=== PATIENT | male | born 1945 | race Caucasian/White ===

== ENCOUNTER 2018-06-03 21:20 | Observation (INO) ==
[2018-06-04 00:02] LABS: Baso % (Auto) 0.3 % (0.0-2.0); Eos % (Auto) 0.1 % (0.0-4.0); Hematocrit 44.3 % (39.0-51.0); Hemoglobin 14.8 gm/dL (13.0-17.0); Lymph # (Auto) 0.8 th/mm3 (1.0-4.8); Lymph % (Auto) 8.9 % (9.0-44.0); Mean Corpuscular HGB Conc 33.5 % (32.0-36.0); Mean Corpuscular Volume 83.7 fL (80.0-100.0); Mean Platelet Volume 8.8 fL (7.0-11.0); Mono # (Auto) 0.6 th/mm3 (0.0-0.9); Neut % (Auto) 84.7 % (16.0-70.0); Platelet Count 167 th/mm3 (150-450); Red Cell Distribution Width 16.3 % (11.6-17.2); White Blood Count 9.4 th/mm3 (4.0-11.0)
--- NOTE | 2018-06-04 00:10 | ED ---
HPI General Chief complaint: Urogenital-Male Stated complaint: can't pee/very uncomfortable Time Seen by Provider: 06/03/18 23:29 Source: patient Mode of arrival: ambulatory Limitations: no limitations History of Present Illness HPI narrative: 73yo M with PMH of enlarged prostate presents to the ED with c/o inability to urinate since 5pm tonight. Said he has also been having diarrhea for 1 day. He saw blood on toilet paper. Pt was seen at [facility] 05/07/18 and was placed cipro for orchitis. Pt said his testicle is no longer swollen and denies any testicular pain. Denies any fever, chest pain, sob, n/v. Pt has suprapubic distension and pain. Related Data Home Medications Medication Instructions Recorded Confirmed No Known Home Medications 06/04/18 06/04/18 Previous Rx's Medication Instructions Recorded [id number] 1 applicatio TOPICAL BID #1 tube 06/05/18 [Triple Antibiotic] tamsulosin 0.4 mg PO DAILY #30 cap 06/05/18 Allergies Allergy/AdvReac Type Severity Reaction Status Date / Time No Known Allergies Allergy Unverified 06/03/18 23:09 Review of Systems ROS Unobtainable All other systems reviewed negative except as stated in HPI [facility] Medical History Medical History Ankle fracture, left (Acute) Patient denies medical problems (Acute) Surgical History Surgical History H/O hernia repair (Acute) S/P LASIK (laser assisted in situ keratomileusis) of both eyes (Acute) Family History Family History Father Family history of cancer Social History Social History Substance History: No History of Abuse Second Hand Smoke Exposure: No Smoking Status: Former smoker Tobacco Type: Cigarettes Packs Per Day: 1 Cigarettes Per Day: 20.0 Years Smoked: 30 Pack-Years: 30.00 years: 30 How Often Do You Have a Drink Containing Alcohol: Never (Not in the last year, Previous binged drinker on the weekends x 30 years) Recent Travel in [facility] within the Last 8 Weeks: No Recent Out of Country Travel within the Last 8 Weeks: No Exam Narrative Exam Narrative: GENERAL: 73yo M in mild distress. SKIN: Focused skin assessment warm/dry. HEAD: Atraumatic. Normocephalic. EYES: Pupils equal and round. No scleral icterus. No injection or drainage. ENT: No nasal bleeding or discharge. Mucous membranes pink and moist. NECK: Trachea midline. No JVD. CARDIOVASCULAR: Regular rate and rhythm. No murmur appreciated. RESPIRATORY: No accessory muscle use. Clear to auscultation. Breath sounds equal bilaterally. GASTROINTESTINAL: Abdomen soft, +TTP suprapubic region with suprapubic distension. No rebound tenderness or guarding. RECTAL: Brown stool, positive hemaprompt. MUSCULOSKELETAL: No obvious deformities. No clubbing. No cyanosis. No edema. NEUROLOGICAL: Awake and alert. No obvious cranial nerve deficits. Motor grossly within normal limits. Normal speech. PSYCHIATRIC: Appropriate mood and affect; insight and judgment normal. Course Initial Documented Vital Signs Temperature 98.2 F 06/03/18 23:09 Pulse Rate 113 H 06/03/18 23:09 Respiratory Rate 16 06/03/18 23:09 Blood Pressure 118/78 06/03/18 23:09 Pulse Oximetry 95 06/03/18 23:09 Last Documented Vital Signs Temperature 97.6 F 06/05/18 13:57 Pulse Rate 63 06/05/18 13:57 Respiratory Rate 20 06/05/18 13:57 Blood Pressure 137/60 06/05/18 13:57 Pulse Oximetry 93 L 06/05/18 13:57 Medical Decision Making MDM Narrative Medical decision making narrative: Bladder US showed 643cc of urine. Discussed with Dr. Gandhi and he said to keep pt NPO and he will bring him to the OR in the morning. Differential Diagnosis Differential Diagnosis: Urinary retention vs. colitis vs. lower GI bleed vs. anal fissure Lab Data Result diagrams: 06/05/18 04:25 06/05/18 04:25 Lab Results 06/03/18 06/03/18 06/03/18 Range/Units 23:40 23:40 23:40 WBC 9.4 (4.0-11.0) th/mm3 RBC 5.30 (4.50-5.90) mil/mm3 Hgb 14.8 (13.0-17.0) gm/dL Hct 44.3 (39.0-51.0) % MCV 83.7 (80.0-100.0) fL MCH 28.0 (27.0-34.0) pg MCHC 33.5 (32.0-36.0) % RDW 16.3 (11.6-17.2) % Plt Count 167 (150-450) th/mm3 MPV 8.8 (7.0-11.0) fL Neut % (Auto) 84.7 H (16.0-70.0) % Lymph % (Auto) 8.9 L (9.0-44.0) % [place] % (Auto) 6.0 (0.0-8.0) % Eos % (Auto) 0.1 (0.0-4.0) % Baso % (Auto) 0.3 (0.0-2.0) % Neut # (Auto) 8.0 H (1.8-7.7) th/mm3 Lymph # (Auto) 0.8 L (1.0-4.8) th/mm3 [place] # (Auto) 0.6 (0.0-0.9) th/mm3 Eos # (Auto) 0.0 (0.0-0.4) th/mm3 Baso # (Auto) 0.0 (0.0-0.2) th/mm3 WBC Differential . Differential Comment Auto diff final PT 10.3 (9.8-11.6) sec INR 1.0 Ratio APTT 24.9 (24.3-30.1) sec Sodium 141 (136-145) meq/L Potassium 3.4 L (3.5-5.1) meq/L Chloride 106 (98-107) meq/L Carbon Dioxide 24.5 (21.0-32.0) meq/L Anion Gap 11 (5-15) meq/L BUN 9 (7-18) mg/dL Creatinine 0.83 (0.60-1.30) mg/dL Estimated GFR Greater than 89 (>89) mL/min Random Glucose 122 H (74-106) mg/dL Calcium 9.3 (8.5-10.1) mg/dL Blood Type Blood Type Recheck Antibody Screen 06/03/18 06/05/18 06/05/18 Range/Units 23:40 04:25 04:25 WBC 5.3 (4.0-11.0) th/mm3 RBC 4.45 L (4.50-5.90) mil/mm3 Hgb 12.5 L D (13.0-17.0) gm/dL Hct 37.6 L (39.0-51.0) % MCV 84.4 (80.0-100.0) fL MCH 28.0 (27.0-34.0) pg MCHC 33.2 (32.0-36.0) % RDW 16.7 (11.6-17.2) % Plt Count 139 L (150-450) th/mm3 MPV 8.9 (7.0-11.0) fL Neut % (Auto) 85.7 H (16.0-70.0) % Lymph % (Auto) 10.2 (9.0-44.0) % [place] % (Auto) 4.1 (0.0-8.0) % Eos % (Auto) 0.0 (0.0-4.0) % Baso % (Auto) 0.0 (0.0-2.0) % Neut # (Auto) 4.5 (1.8-7.7) th/mm3 Lymph # (Auto) 0.5 L (1.0-4.8) th/mm3 [place] # (Auto) 0.2 (0.0-0.9) th/mm3 Eos # (Auto) 0.0 (0.0-0.4) th/mm3 Baso # (Auto) 0.0 (0.0-0.2) th/mm3 WBC Differential . Differential Comment Auto diff final PT (9.8-11.6) sec INR Ratio APTT (24.3-30.1) sec Sodium 146 H (136-145) meq/L Potassium 4.2 D (3.5-5.1) meq/L Chloride 112 H (98-107) meq/L Carbon Dioxide 24.4 (21.0-32.0) meq/L Anion Gap 10 (5-15) meq/L BUN 14 (7-18) mg/dL Creatinine 0.96 (0.60-1.30) mg/dL Estimated GFR 77 L (>89) mL/min Random Glucose 112 H (74-106) mg/dL Calcium 8.5 D (8.5-10.1) mg/dL Blood Type A Positive Blood Type Recheck Required Antibody Screen Negative Imaging Data Radiologist's impression: ITS Impressions Abdomen/Pelvis CT 06/04/18 01:53 CONCLUSION: 1. Mild bilateral hydronephrosis and mild hydroureter along with marked distention of the urinary bladder. Constellation of findings favor possible bladder outlet obstruction. Prostate is enlarged and apparent TURP defect is noted. 2. 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 3. 7 mm pulmonary nodular density in the right lower lobe. Recommend a follow- up noncontrast chest CT. Discharge Plan Discharge Disposition Patient Disposition: 01 Discharge Home Discharge Condition Condition: Good Discharge Order Discharge Orders: Discharge Order (Routine); Ordered 06/05/18 Ordered By: Silvestre Lane Urology Clear for Discharge (Routine); Ordered 06/05/18 Ordered By: Sloan Roldan Discharge Details Anticipated Discharge Date: 06/05/18 Discharge Comment: Patient to be discharged home with Gonzalez catheter to leg bag. Please give patient a large Gonzalez bag for overnight use. Patient to follow-up at my office Wednesday to have Gonzalez removed [phone]. Advised patient to continue to apply Neosporin ointment to the tip of penis twice daily 1 week. Physicians Team ED Provider: Italia Taylor Primary Care Provider: Primary Care Lamar Mcginnis Attending Provider: Tanna Davis Other Providers: Sloan Roldan Status ED Status: Left Department Discharge Information Discharge Date/Time: 06/04/18 04:00
[2018-06-04 00:16] LABS: Activated Partial Thrombo Time 24.9 sec (24.3-30.1); Prothrombin Time 10.3 sec (9.8-11.6)
[2018-06-04 00:24] LABS: Anion Gap 11 meq/L (5-15); Blood Urea Nitrogen 9 mg/dL (7-18); Calcium 9.3 mg/dL (8.5-10.1); Carbon Dioxide 24.5 meq/L (21.0-32.0); Chloride 106 meq/L (98-107); Glomerular Filtration Rate Greater Than 89 mL/min (>89); Glucose,Random 122 mg/dL (74-106); Potassium 3.4 meq/L (3.5-5.1); Sodium 141 meq/L (136-145)
[2018-06-04] MEDS ORDERED: Morphine Inj 4 MG/ML Vial IV.PUSH ONE (01:35)
[2018-06-04] MEDS ORDERED: Morphine Inj 4 MG/ML Vial IV.PUSH PRN (02:23)
[2018-06-04] MEDS ORDERED: Bisacodyl 10 MG Supp RECTAL PRN (02:24)
[2018-06-04] MEDS ORDERED: Acetaminophen 325 MG Tablet PO PRN (02:24)
--- NOTE | 2018-06-04 03:27 | CT ---
EXAM DATE: 06/04/2018 3:04 AM EDT AGE/SEX: 73 years / Male INDICATIONS: Low abdomen pain; difficulty urinating. CLINICAL DATA: This is the patient's initial encounter. Patient reports that signs and symptoms have been present for 1 day and indicates a pain score of 5/10. MEDICAL/SURGICAL HISTORY: None. None. RADIATION DOSE: 9.96 CTDI (mGy) COMPARISON: No prior exams available for comparison. TECHNIQUE: Multiple contiguous axial images were obtained through the abdomen. Images were obtained using multiple row detector helical technique. Using automated exposure control and adjustment of the mA and/or kV according to patient size, radiation dose was kept as low as reasonably achievable to o btain optimal diagnostic quality images. DICOM format image data is available electronically for rev iew and comparison. FINDINGS: Lower Lungs: Patchy atelectasis at the lung bases. 7 mm nodular density in the right lower lobe on im age #1. Liver: Calcified 1.7 cm gallstone is seen within the gallbladder. No pericholecystic inflammatory dex nges. Liver is homogeneous and within normal limits. Spleen: Homogeneous density without enlargement. Pancreas: Unremarkable without mass or calcification. Kidneys: Mild bilateral hydroureter and mild bilateral hydronephrosis. Punctate 2 mm nonobstructing calculus in the midpole the left kidney versus renal artery calcification other left renal artery allen cifications noted. Adrenal Glands: Unremarkable. Aorta: Distal abdominal aortic aneurysm is noted measuring 4.4 cm in AP dimension. Bowel/Mesentery: Scattered colonic diverticula. No evidence of acute diverticulitis. Appendix within normal limits. No evidence of bowel dilatation. No free air or free fluid. Abdominal Wall: Intact. Retroperitoneum: No evidence of adenopathy in the retrocrural, para-aortic, or deep pelvic regions. Bladder: Markedly distended urinary bladder. Reproductive Organs: Enlarged prostate measuring 5.5 cm in transverse dimension. TURP defect noted. Inguinal: Multiple prominent superficial varices in the proximal left thigh/inguinal region. Bony Structures: Mild osteoarthritic findings of the hips. Moderate degenerative findings of lumbar spine. CONCLUSION: 1. Mild bilateral hydronephrosis and mild hydroureter along with marked distention of the urinary bl adder. Constellation of findings favor possible bladder outlet obstruction. Prostate is enlarged and apparent TURP defect is noted. 2. 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 3. 7 mm pulmonary nodular density in the right lower lobe. Recommend a follow-up noncontrast chest C T. Electronically signed by: Xander Barney MD 06/04/2018 3:26 AM EDT
[2018-06-04] MEDS: Sod Chloride 0.9% Inj 1,000 ML IV.CONT SCH ×2 (03:47→17:27)
[2018-06-04] MEDS ORDERED: Baclofen 10 MG Tablet PO ONE (09:00)
--- NOTE | 2018-06-04 10:08 | P.HP ---
History of Present Illness Service: [facility] Primary Care Physician: No Primary Care Physician Chief Complaint: Urinary Retention History of Present Illness: Patient is a 73-year-old male with no significant primary medical history except for surgical history of right hernia repair who came into the hospital for evaluation of urinary retention. Patient states that yesterday he started with diarrhea and frequent urination. States that in the afternoon he started to dribble and by the nighttime he was unable to urinate that he came to the hospital. Patient states that he was treated with scrotal infection prior at [facility] and he was due to see a urologist to check him out for prostate problems. He was unable to go since he is now back in the hospital. States that he continues to have suprapubic pain /10, briefly relieved by pain medication, aggravated by movement and straining, states it is feeling achy and dull and tight in the area. Denies SOB/ dyspnea. Denies chest pain, palpitations, headaches, dizziness. Denies fevers, chills, n/v/d. - Diagnosis (1) Urinary retention Inpatient Certification: I certify that the inpatient services were ordered in accordance with Medicare regulations governing the order. This includes certification that hospital inpatient services are reasonable and necessary and in the case of services not specified as inpatient-only under 42 CFR 419.22(n), that they are appropriately provided as inpatient services in accordance to with the 2-midnight benchmark under 43 CFR 412.3(e) Review of Systems All other systems reviewed negative except as stated in HPI PMFSH - History History Provided By: Patient - Medical History Medical History: Medical History (Last Updated 06/04/18 @ 10:06 by TAN Singh) Ankle fracture, left Patient denies medical problems - Surgical History Surgical History: Surgical History (Last Updated 06/04/18 @ 10:06 by TAN Singh) H/O hernia repair S/P LASIK (laser assisted in situ keratomileusis) of both eyes - Family History Family History: Family History (Last Updated 06/04/18 @ 10:06 by TAN Singh) Father Family history of cancer - Tobacco History Second Hand Smoke Exposure: No Tobacco Use In Past 30 Days: No Smoking Status: Former smoker Tobacco Type: Cigarettes Packs Per Day: 1 Years Smoked: 30 years: 30 - Alcohol History How Often Do You Have a Drink Containing Alcohol: Never (Not in the last year, Previous binged drinker on the weekends x 30 years) - Substance Use History Substance History: No History of Abuse - Travel History Recent Travel in the [place] Within the Last 8 Weeks: No Recent Travel Out of the Country Within the Last 8 Weeks: No Medications and Allergies Active Medications: Active Medications Acetaminophen (Tylenol) 650 mg PO Q4H PRN PRN Reason: Temp > 100.4 Al Hydroxide/Mg Hydroxide (Milk Of Magnesia Liq) 30 ml PO Q12H PRN PRN Reason: Mild Constipation Bisacodyl (Dulcolax Supp) 10 mg RECTAL DAILY PRN PRN Reason: SEVERE CONSITIPATION Sodium Chloride (Ns Inj) 1,000 mls @ 100 mls/hr IV.CONT .Q10H STEFFANIE Last Admin: 06/04/18 03:47 Dose: 100 mls/hr Lactulose (Lactulose Liq) 30 ml PO DAILY PRN PRN Reason: SEVERE CONSITIPATION Morphine Sulfate (Morphine Inj) 4 mg IV.PUSH Q4H PRN PRN Reason: PAIN 6-10;IF UNABLE TO TAKE PO Last Admin: 06/04/18 07:47 Dose: 4 mg Ondansetron HCl (Zofran Inj) 4 mg IV.PUSH Q6H PRN PRN Reason: NAUSEA OR VOMITING Senna/Docusate Sodium (Sangeeta-Colace) 1 tab PO BID STEFFANIE Sennosides (Senokot) 17.2 mg PO Q12H PRN PRN Reason: Moderate Constipation Allergies Allergy/AdvReac Type Severity Reaction Status Date / Time No Known Allergies Allergy Unverified 06/03/18 23:09 Home Medications Medication Instructions Recorded Confirmed Type No Known Home Medications 06/04/18 06/04/18 History Exam Vital signs: Vital Signs 06/03/18 23:09 06/04/18 01:08 06/04/18 03:45 Temperature 98.2 F Pulse Rate 113 H 100 H Respiratory Rate 16 20 20 Blood Pressure 118/78 214/114 H 170/92 H Pulse Oximetry 95 94 L 06/04/18 04:51 06/04/18 08:00 Temperature 98.4 F 97.5 F L Pulse Rate 95 H 92 H Respiratory Rate 16 18 Blood Pressure 171/85 H 180/99 H Pulse Oximetry 93 L 94 L Intake & Output 06/03/18 06/04/18 06/04/18 18:59 06:59 18:59 Weight 81.647 kg Narrative: GENERAL: This is a well-nourished, well-developed patient, in no apparent distress. SKIN: Warm and dry HEENT: Normocephalic. Pupils equal round and reactive. Nose without bleeding. Airway patent. NECK: Trachea midline. No JVD. Supple. CARDIOVASCULAR: Regular rate and rhythm without murmurs, gallops, or rubs. RESPIRATORY: Clear to auscultation. Breath sounds equal bilaterally. No wheezes , rales, or rhonchi. GASTROINTESTINAL: Abdomen soft, non-tender. Bowel Sounds normoactive x4 : Distended suprapubic area, tender to palpate. MUSCULOSKELETAL: Extremities without clubbing, cyanosis, or edema. NEUROLOGICAL: Awake and alert. Oriented to time, place, person. No focal neuro deficit. Moves all extremities. Normal speech. Results - Labs CBC & Chem 7: 06/03/18 23:40 06/03/18 23:40 Labs: Laboratory Results - last 24 hr 06/03/18 06/03/18 06/03/18 23:40 23:40 23:40 WBC 9.4 RBC 5.30 Hgb 14.8 Hct 44.3 MCV 83.7 MCH 28.0 MCHC 33.5 RDW 16.3 Plt Count 167 MPV 8.8 Neut % (Auto) 84.7 H Lymph % (Auto) 8.9 L [place] % (Auto) 6.0 Eos % (Auto) 0.1 Baso % (Auto) 0.3 Neut # (Auto) 8.0 H Lymph # (Auto) 0.8 L [place] # (Auto) 0.6 Eos # (Auto) 0.0 Baso # (Auto) 0.0 WBC Differential . Differential Comment Auto diff final PT 10.3 INR 1.0 APTT 24.9 Sodium 141 Potassium 3.4 L Chloride 106 Carbon Dioxide 24.5 Anion Gap 11 BUN 9 Creatinine 0.83 Estimated GFR Greater than 89 Random Glucose 122 H Calcium 9.3 Blood Type Blood Type Recheck Antibody Screen 06/03/18 23:40 WBC RBC Hgb Hct MCV MCH MCHC RDW Plt Count MPV Neut % (Auto) Lymph % (Auto) [place] % (Auto) Eos % (Auto) Baso % (Auto) Neut # (Auto) Lymph # (Auto) [place] # (Auto) Eos # (Auto) Baso # (Auto) WBC Differential Differential Comment PT INR APTT Sodium Potassium Chloride Carbon Dioxide Anion Gap BUN Creatinine Estimated GFR Random Glucose Calcium Blood Type A Positive Blood Type Recheck Required Antibody Screen Negative - Imaging Impressions Abdomen/Pelvis CT 06/04/18 01:53 CONCLUSION: 1. Mild bilateral hydronephrosis and mild hydroureter along with marked distention of the urinary bladder. Constellation of findings favor possible bladder outlet obstruction. Prostate is enlarged and apparent TURP defect is noted. 2. 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 3. 7 mm pulmonary nodular density in the right lower lobe. Recommend a follow- up noncontrast chest CT. Caprini VTE Risk Assessment Caprini VTE Risk Assessment: Moderate/High Risk (score >= 2) Caprini Risk Assessment Model: Point Value = 1 Point Value = 2 Point Value = 3 Point Value = 5 Age 41-60 Minor surgery BMI > 25 kg/m2 Swollen legs Varicose veins or History of unexplained or recurrent spontaneous Oral contraceptives or hormone replacement Sepsis (< 1 month) Serious lung disease, including pneumonia (< 1 month) Abnormal pulmonary function Acute myocardial infarction Congestive heart failure (< 1 month) History of inflammatory bowel disease Medical patient at bed rest Age 61-74 Arthroscopic surgery Major open surgery (> 45 min) Laparoscopic surgery (> 45 min) Malignancy Confined to bed (> 72 hours) Immobilizing plaster cast Central venous access Age >= 75 History of VTE Family history of VTE Factor V Leiden Prothrombin [id number] Lupus anticoagulant Anticardiolipin antibodies Elevated serum homocysteine Heparin-induced thrombocytopenia Other congenital or acquired thrombophilia Stroke (< 1 month) Elective arthroplasty Hip, pelvis, or leg fracture Acute spinal cord injury (< 1 month) Prophylaxis Regimen: Total Risk Factor Score Risk Level Prophylaxis Regimen 0-1 Low Early ambulation 2 Moderate Order ONE of the following: *Sequential Compression Device (SCD) *Heparin 5000 units SQ BID 3-4 Higher Order ONE of the following medications: *Heparin 5000 units SQ TID *Enoxaparin/Lovenox 40 mg SQ daily (WT < 150 kg, CrCl > 30 mL/min) *Enoxaparin/Lovenox 30 mg SQ daily (WT < 150 kg, CrCl > 10-29 mL/min) *Enoxaparin/Lovenox 30 mg SQ BID (WT < 150 kg, CrCl > 30 mL/min) AND/OR *Sequential Compression Device (SCD) 5 or more Highest Order ONE of the following medications: *Heparin 5000 units SQ TID (Preferred with Epidurals) *Enoxaparin/Lovenox 40 mg SQ daily (WT < 150 kg, CrCl > 30 mL/min) *Enoxaparin/Lovenox 30 mg SQ daily (WT < 150 kg, CrCl > 10-29 mL/min) *Enoxaparin/Lovenox 30 mg SQ BID (WT < 150 kg, CrCl > 30 mL/min) AND *Sequential Compression Device (SCD) Assessment and Plan - Assessment (1) Urinary retention Code(s): R33.9 - Retention of urine, unspecified Status: Acute - Plan Patient is a 73-year-old male with no significant primary medical history except for surgical history of right hernia repair who came into the hospital for evaluation of urinary retention. Acute urinary retention -Gonzalez catheter insertion even with coud catheter failed with nursing -Urologist consulted for further evaluation recommendation -Start Flomax, bethanechol, baclofen for new -Bladder scan as needed, latest bladder scan with greater than 400 mL's in the bladder -CT of the abdomen and pelvis showed 1. Mild bilateral hydronephrosis and mild hydroureter along with marked distention of the urinary bladder. Constellation of findings favor possible bladder outlet obstruction. Prostate is enlarged and apparent TURP defect is noted. 2. 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 3. 7 mm pulmonary nodular density in the right lower lobe. Recommend a follow-up noncontrast chest CT. DVT prop SCDs Code Status: Full Code Discussed Condition With: Patient, nursing, Dr. Davis Discharge Planning: Plan to DC home when clinically improved. Possible procedure with urologist
[2018-06-04] MEDS: Senna/Docusate Sodium 8.6/50 MG Tablet PO SCH ×2 (10:24→21:28)
--- NOTE | 2018-06-04 10:45 | P.CONURO ---
History of Present Illness Consult date: 06/04/18 Requesting Physician: Analia Weiner Reason for Consult: Urinary retention Primary Care Provider: No Primary Care Physician Chief Complaint: Urinary Retention History of Present Illness: 73 old gentleman with recent history progressive difficulty voiding who presented to the emergency room now with inability to void. Patient reports he has only been able to dribble a few drops of urine at a time. Several attempts were made by the ER staff to pass a Gonzalez catheter without success due to a fibrotic foreskin. Patient reports that he was recently evaluated at [facility] emergency room for testicular pain and treated with oral antibiotics. He denies seeing a urologist. He denies having any type of urologic procedure in the past. He denies a history diabetes mellitus. A CT scan during present hospitalization demonstrated bilateral hydronephrosis, a distended bladder and an enlarged prostate. I made an attempt at the bedside to pass a Gonzalez catheter without success due to significant fibrosis of the penile foreskin. Review of Systems Genitourinary: Reports decreased urination, Reports difficulty urinating, Reports painful urination, Reports testicle pain (Now resolved), Denies blood in urine PMFSH - History History Provided By: Patient - Medical History Medical History: Medical History (Last Updated 06/04/18 @ 10:06 by ATN Singh) Ankle fracture, left Patient denies medical problems - Surgical History Surgical History: Surgical History (Last Updated 06/04/18 @ 10:06 by TAN Singh) H/O hernia repair S/P LASIK (laser assisted in situ keratomileusis) of both eyes - Family History Family History: Family History (Last Updated 06/04/18 @ 10:06 by TAN Singh) Father Family history of cancer - Tobacco History Second Hand Smoke Exposure: No Tobacco Use In Past 30 Days: No Smoking Status: Former smoker Tobacco Type: Cigarettes Packs Per Day: 1 Years Smoked: 30 years: 30 - Alcohol History How Often Do You Have a Drink Containing Alcohol: Never (Not in the last year, Previous binged drinker on the weekends x 30 years) - Substance Use History Substance History: No History of Abuse - Travel History Recent Travel in the [place] Within the Last 8 Weeks: No Recent Travel Out of the Country Within the Last 8 Weeks: No Medications and Allergies Active Medications: Active Medications Acetaminophen (Tylenol) 650 mg PO Q4H PRN PRN Reason: Temp > 100.4 Al Hydroxide/Mg Hydroxide (Milk Of Magnesia Liq) 30 ml PO Q12H PRN PRN Reason: Mild Constipation Bisacodyl (Dulcolax Supp) 10 mg RECTAL DAILY PRN PRN Reason: SEVERE CONSITIPATION Sodium Chloride (Ns Inj) 1,000 mls @ 100 mls/hr IV.CONT .Q10H [facility] Last Admin: 06/04/18 03:47 Dose: 100 mls/hr Lactulose (Lactulose Liq) 30 ml PO DAILY PRN PRN Reason: SEVERE CONSITIPATION Morphine Sulfate (Morphine Inj) 4 mg IV.PUSH Q4H PRN PRN Reason: PAIN 6-10;IF UNABLE TO TAKE PO Last Admin: 06/04/18 07:47 Dose: 4 mg Ondansetron HCl (Zofran Inj) 4 mg IV.PUSH Q6H PRN PRN Reason: NAUSEA OR VOMITING Senna/Docusate Sodium (Sangeeta-Colace) 1 tab PO BID [facility] Last Admin: 06/04/18 10:24 Dose: Not Given Sennosides (Senokot) 17.2 mg PO Q12H PRN PRN Reason: Moderate Constipation Allergies Allergy/AdvReac Type Severity Reaction Status Date / Time No Known Allergies Allergy Unverified 06/03/18 23:09 Home Medications Medication Instructions Recorded Confirmed Type No Known Home Medications 06/04/18 06/04/18 History Physical Exam Vital Signs - 24 hr 06/03/18 23:09 06/04/18 01:08 06/04/18 03:45 Temperature 98.2 F Pulse Rate 113 H 100 H Respiratory Rate 16 20 20 Blood Pressure 118/78 214/114 H 170/92 H Pulse Oximetry 95 94 L 06/04/18 04:51 06/04/18 08:00 Temperature 98.4 F 97.5 F L Pulse Rate 95 H 92 H Respiratory Rate 16 18 Blood Pressure 171/85 H 180/99 H Pulse Oximetry 93 L 94 L Physical Exam: GENERAL: This is a well-nourished, well-developed patient, in no apparent distress. SKIN: No rashes, ecchymoses or lesions. Cool and dry. HEAD: Atraumatic. Normocephalic. No temporal or scalp tenderness. EYES: Pupils equal round and reactive. Extraocular motions intact. No scleral icterus. No injection or drainage. ENT: Nose without bleeding, purulent drainage or septal hematoma. Throat without erythema, tonsillar hypertrophy or exudate. Uvula midline. Airway patent. NECK: Trachea midline. No JVD or lymphadenopathy. Supple, nontender, no meningeal signs. CARDIOVASCULAR: Regular rate and rhythm without murmurs, gallops, or rubs. RESPIRATORY: Clear to auscultation. Breath sounds equal bilaterally. No wheezes , rales, or rhonchi. GASTROINTESTINAL: Abdomen soft, non-tender, nondistended. No hepato-splenomegaly , or palpable masses. No guarding. GENITOURINARY: Bladder distended, normal male genitalia with a fibrotic penile foreskin that precluded visualization of the meatus. MUSCULOSKELETAL: Extremities without clubbing, cyanosis, or edema. No joint tenderness, effusion, or edema noted. No calf tenderness. Negative Homans sign bilaterally. NEUROLOGICAL: Awake and alert. Cranial nerves II through XII intact. Motor and sensory grossly within normal limits. Five out of 5 muscle strength in all muscle groups. Normal speech. Laboratory Results - last 24 hr 06/03/18 06/03/18 06/03/18 23:40 23:40 23:40 WBC 9.4 RBC 5.30 Hgb 14.8 Hct 44.3 MCV 83.7 MCH 28.0 MCHC 33.5 RDW 16.3 Plt Count 167 MPV 8.8 Neut % (Auto) 84.7 H Lymph % (Auto) 8.9 L Marshall % (Auto) 6.0 Eos % (Auto) 0.1 Baso % (Auto) 0.3 Neut # (Auto) 8.0 H Lymph # (Auto) 0.8 L Marshall # (Auto) 0.6 Eos # (Auto) 0.0 Baso # (Auto) 0.0 WBC Differential . Differential Comment Auto diff final PT 10.3 INR 1.0 APTT 24.9 Sodium 141 Potassium 3.4 L Chloride 106 Carbon Dioxide 24.5 Anion Gap 11 BUN 9 Creatinine 0.83 Estimated GFR Greater than 89 Random Glucose 122 H Calcium 9.3 Blood Type Blood Type Recheck Antibody Screen 06/03/18 23:40 WBC RBC Hgb Hct MCV MCH MCHC RDW Plt Count MPV Neut % (Auto) Lymph % (Auto) Marshall % (Auto) Eos % (Auto) Baso % (Auto) Neut # (Auto) Lymph # (Auto) Marshall # (Auto) Eos # (Auto) Baso # (Auto) WBC Differential Differential Comment PT INR APTT Sodium Potassium Chloride Carbon Dioxide Anion Gap BUN Creatinine Estimated GFR Random Glucose Calcium Blood Type A Positive Blood Type Recheck Required Antibody Screen Negative Result Diagrams: 06/03/18 23:40 06/03/18 23:40 Imaging: ITS Impressions Abdomen/Pelvis CT 06/04/18 01:53 CONCLUSION: 1. Mild bilateral hydronephrosis and mild hydroureter along with marked distention of the urinary bladder. Constellation of findings favor possible bladder outlet obstruction. Prostate is enlarged and apparent TURP defect is noted. 2. 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 3. 7 mm pulmonary nodular density in the right lower lobe. Recommend a follow- up noncontrast chest CT. Assessment and Plan - Assessment (1) Urinary retention Code(s): R33.9 - Retention of urine, unspecified Status: Acute - Plan 1. Keep patient n.p.o. 2. We will bring the patient to the cystoscopy suite sometime this morning for cystoscopy, manipulation of penile foreskin and likely placement of a Gonzalez catheter.
[2018-06-04] MEDS ORDERED: Phenylephrine/NS 1000 MCG/10ML Syringe IV.PUSH ONE (12:00)
[2018-06-04] MEDS ORDERED: Lidocaine PF 1% Inj 5 ML Syringe INFILTRATN ONE (12:00)
--- NOTE | 2018-06-04 17:26 | P.OP ---
- Preoperative Diagnosis (1) Urinary retention - Postoperative Diagnosis (1) Urinary retention Date of procedure: 06/04/18 Procedure: Dorsal slit procedure and cystoscopic evaluation Anesthesia: GETA Surgeon: Sloan Roldan MD Estimated blood loss (mL): 0 Pathology: none sent Operation and Findings: Indication for procedure: Case of a pleasant 73-year-old gentleman who presented to the emergency room in urinary retention. Multiple attempts to place a Gonzalez catheter were not successful due to a severely stenotic and fibrotic foreskin. Patient presents now for foreskin manipulation and cystoscopic evaluation. Operative procedure in detail: Patient was brought to the operating room suite and placed supine. He was then placed under general anesthesia. He was then repositioned in the dorsolithotomy position and prepped and draped in normal sterile fashion. After an appropriate timeout was undertaken I proceeded with gently manipulating the penile foreskin with a straight clamp. The foreskin would not stretch due to significant fibrosis and I subsequently compressed a wedge of tissue at the 12 o'clock position with the straight clamp. The clamp was left in place for approximately 60 seconds and released. I then used scissors and sharply cut the compressed tissue. I repeated this several times so that the glands could be exposed. The free skin edges were then reapproximated with interrupted 3-0 chromic sutures. Cystoscopic evaluation was then performed utilizing the rigid cystoscope with the 30 lens and 19 [place] sheath. The urethra was patent without stricture formation and the prostatic urethra was not obstructing. Further passive cystoscope within urinary bladder revealed both right and left ureteral orifices to be in correct anatomic position draining clear yellow urine. This cystoscope was withdrawn and a 16 [place] 10 cc Gonzalez catheter was placed and connected to gravity drainage. Neomycin ointment was applied to the dorsal slit procedure site. I subsequently proceeded with a digital rectal exam that demonstrated a smooth prostate measuring approximately 30 g in size. There were no nodules or induration noted. The patient tolerated the procedures and was transferred to the PACU in satisfactory condition.
[2018-06-04] MEDS ORDERED: fentaNYL Citrate Inj 100 MCG/2 ML Ampul ONE (17:37)
[2018-06-05] MEDS: Sod Chloride 0.9% Inj 1,000 ML IV.CONT SCH ×2 (00:03→09:07)
[2018-06-05 05:52] LABS: Hematocrit 37.6 % (39.0-51.0); Hemoglobin 12.5 gm/dL (13.0-17.0); Lymph # (Auto) 0.5 th/mm3 (1.0-4.8); Lymph % (Auto) 10.2 % (9.0-44.0); Mean Corpuscular HGB Conc 33.2 % (32.0-36.0); Mean Corpuscular Volume 84.4 fL (80.0-100.0); Mean Platelet Volume 8.9 fL (7.0-11.0); Mono # (Auto) 0.2 th/mm3 (0.0-0.9); Mono % (Auto) 4.1 % (0.0-8.0); Neut # (Auto) 4.5 th/mm3 (1.8-7.7); Neut % (Auto) 85.7 % (16.0-70.0); Platelet Count 139 th/mm3 (150-450); Red Blood Count 4.45 mil/mm3 (4.50-5.90); Red Cell Distribution Width 16.7 % (11.6-17.2); White Blood Count 5.3 th/mm3 (4.0-11.0)
[2018-06-05 06:20] LABS: Calcium 8.5 mg/dL (8.5-10.1); Carbon Dioxide 24.4 meq/L (21.0-32.0); Potassium 4.2 meq/L (3.5-5.1)
[2018-06-05] MEDS: Senna/Docusate Sodium 8.6/50 MG Tablet PO SCH (09:11)
--- NOTE | 2018-06-05 10:03 | P.DS ---
Date of admission: 06/04/18 01:58 Primary care physician: No Primary Care Physician Attending physician on discharge: Tanna Davis Anticipated date of discharge: 06/05/18 Brief History from admission: Patient is a 73-year-old male with no significant primary medical history except for surgical history of right hernia repair who came into the hospital for evaluation of urinary retention. Patient states that yesterday he started with diarrhea and frequent urination. States that in the afternoon he started to dribble and by the nighttime he was unable to urinate that he came to the hospital. Patient states that he was treated with scrotal infection prior at [facility] and he was due to see a urologist to check him out for prostate problems. He was unable to go since he is now back in the hospital. States that he continues to have suprapubic pain /10, briefly relieved by pain medication, aggravated by movement and straining, states it is feeling achy and dull and tight in the area. Denies SOB/ dyspnea. Denies chest pain, palpitations, headaches, dizziness. Denies fevers, chills, n/v/d. DS: Diagnosis - Discharge Diagnosis (1) Urinary retention Status: Acute DS: Medications - Discharge Medications Prescriptions: [id number] [Triple Antibiotic] 1 applicatio TOPICAL BID #1 tube tamsulosin 0.4 mg PO DAILY #30 cap DS: Summary Hospital Course: Patient is a 73-year-old male with no significant primary medical history except for surgical history of right hernia repair who came into the hospital for evaluation of urinary retention. CT scan during present hospitalization demonstrated bilateral hydronephrosis, a distended bladder and an enlarged prostate. Multiple Gonzalez insertion attempt has been done at the bedside but was unsuccessful. Patient was seen by urologist Dr. Roldan, and patient was brought to the cystoscopy suite for cystoscopy, manipulation of penile foreskin and placement of catheter. Patient tolerated the procedure. States significant improvement and now with urinary catheter in place. He will follow- up with the urologist on Wednesday for possible catheter removal. Flomax started. Patient has met maximal benefits of hospitalization. Clinically stable for discharge. - Time Spent with Patient Total time spent providing and/or coordinating discharge services: Less than 30 minutes - Quality: VTE Deep Vein Thrombosis/Pulmonary Embolism Present on Admission: No Exam Vital signs: Vital Signs 06/04/18 12:00 06/04/18 17:30 06/04/18 17:45 Temperature 98.3 F 99.1 F Pulse Rate 92 H 100 H 95 H Respiratory Rate 17 18 17 Blood Pressure 175/85 H 160/81 H 156/76 H Pulse Oximetry 98 97 95 06/04/18 17:55 06/04/18 18:39 06/04/18 20:00 Temperature 98.7 F 97.8 F 97.9 F Pulse Rate 94 H 93 H 96 H Respiratory Rate 16 16 15 Blood Pressure 150/72 H 142/80 H 154/76 H Pulse Oximetry 96 93 L 97 06/05/18 00:00 06/05/18 04:00 06/05/18 08:00 Temperature 97.9 F 98.2 F 98.3 F Pulse Rate 90 92 H 63 Respiratory Rate 15 15 20 Blood Pressure 135/72 140/74 135/66 Pulse Oximetry 97 96 96 Intake & Output 06/04/18 06/05/18 06/05/18 18:59 06:59 18:59 Intake Total 1600 / 1600 200 / 200 1000 / 1000 Output Total 551 / 551 500 / 500 Balance 1049 / 1049 -300 / -300 1000 / 1000 Intake: IV 800 / 800 200 / 200 1000 / 1000 NS Inj 1,000 ML @ 100 mls/hr IV 800 / 800 200 / 200 1000 / 1000 .CONT .Q10H [facility] Rx#:[id number] Oral 0 / 0 Anesthesia Amount 800 / 800 Output: Urine 550 / 550 500 / 500 Stool 0 / 0 Estimated Blood Loss Narrative: GENERAL: This is a well-nourished, well-developed patient, in no apparent distress. SKIN: Warm and dry. HEENT: Normocephalic. Pupils equal round and reactive. Nose without bleeding. Airway patent. NECK: Trachea midline. Supple. CARDIOVASCULAR: Regular rate and rhythm without murmurs, gallops, or rubs. RESPIRATORY: Clear to auscultation. Breath sounds equal bilaterally. No wheezes , rales, or rhonchi. GASTROINTESTINAL: Abdomen soft, non-tender. Bowel Sounds normoactive x4 : Gonzalez catheter in place, slit on the foreskin with neomycin ointment, catheter draining clear yellow urine. MUSCULOSKELETAL: Extremities without clubbing, cyanosis, or edema. NEUROLOGICAL: Awake and alert. Oriented to time, place, person. No focal neuro deficit. Moves all extremities. Normal speech. Results Procedures completed during hospitalization: Status post cystoscopy with placement of Gonzalez catheter Labs on day of discharge: Labs from last 24 hours 06/05/18 06/05/18 04:25 04:25 WBC 5.3 RBC 4.45 L Hgb 12.5 L D Hct 37.6 L MCV 84.4 MCH 28.0 MCHC 33.2 RDW 16.7 Plt Count 139 L MPV 8.9 Neut % (Auto) 85.7 H Lymph % (Auto) 10.2 [place] % (Auto) 4.1 Eos % (Auto) 0.0 Baso % (Auto) 0.0 Neut # (Auto) 4.5 Lymph # (Auto) 0.5 L [place] # (Auto) 0.2 Eos # (Auto) 0.0 Baso # (Auto) 0.0 WBC Differential . Differential Comment Auto diff final Sodium 146 H Potassium 4.2 D Chloride 112 H Carbon Dioxide 24.4 Anion Gap 10 BUN 14 Creatinine 0.96 Estimated GFR 77 L Random Glucose 112 H Calcium 8.5 D - Impressions ITS Impressions Abdomen/Pelvis CT 06/04/18 01:53 CONCLUSION: 1. Mild bilateral hydronephrosis and mild hydroureter along with marked distention of the urinary bladder. Constellation of findings favor possible bladder outlet obstruction. Prostate is enlarged and apparent TURP defect is noted. 2. 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 3. 7 mm pulmonary nodular density in the right lower lobe. Recommend a follow- up noncontrast chest CT. Discharge Plan - Discharge Disposition Patient Disposition: Discharge Home - Discharge Condition Condition: Good - Discharge Order Discharge Orders: Discharge Order (Routine); Ordered 06/05/18 Ordered By: Silvestre Lane Urology Clear for Discharge (Routine); Ordered 06/05/18 Ordered By: Sloan Roldan - Discharge Details Anticipated Discharge Date: 06/05/18 Discharge Comment: Patient to be discharged home with Gonzalez catheter to leg bag. Please give patient a large Gonzalez bag for overnight use. Patient to follow-up at my office Wednesday morning to have Gonzalez removed [phone]. Advised patient to continue to apply Neosporin ointment to the tip of penis twice daily 1 week. - Physicians Team Primary Care Provider: Primary Care Physici,No Attending Provider: Tanna Davis Other Providers: Sloan Roldan MD
== END 2018-06-05 14:08 | disposition home or self-care (01) ==
LOC: NEDA 21:20 → NEPC 21:20 → NEPHCDU 21:20
PROVIDERS: ADMIT Family Medicine; ATTEND Family Medicine